=== PATIENT | male | born 1970 | race Caucasian/White ===

== ENCOUNTER → 2018-01-10 14:42 | Outpatient (CLI) | payer OTHER, BC, SELFPAY ==
--- NOTE | 2018-01-10 14:46 | XR_ITS ---
XR ankle LT min 3V HISTORY: Pain following injury ITS.REASON: Left ankle injury ORDERING PHYSICIAN: CHRIS Adams PATIENT AGE: 47 years COMPARISON: FINDINGS: No fracture or dislocation. No lytic or blastic change. There is normal mineralization.. The joint spaces are well-preserved. No significant degenerative/arthritic changes. No erosive changes evident. IMPRESSION: Negative ankle, no acute finding
== END ==
PROVIDERS: PCP Physician Assistant; Visit Provider Physician Assistant
DX: S99.912A Unspecified injury of left ankle, initial encounter (principal)
CPT/HCPCS: 73610

== ENCOUNTER → 2021-04-18 18:49 | Outpatient (CLI) | payer BC, SELFPAY ==
[2021-04-18 19:01] LABS: Microscopic, Urine URINE MICROSCOPIC (MICROSCOPIC)
[2021-04-18 19:41] LABS: Basophils # 0.1 K/mm3 (0-0.2); Basophils % 0.9 % (0.1-2.0); Eosinophils # 0.4 K/mm3 (0.0-0.4); Eosinophils % 4.7 % (0.1-12.0); Hematocrit 50.3 % (42.0-52.0); Hemoglobin 17.4 g/dL (14.1-18.0); Lymphocytes % 24.2 % (10-50); Mean Corpuscular HGB Conc 34.5 g/dL (31.8-35.4); Mean Corpuscular Hemoglobin 32.7 pg (27.0-31.2); Mean Corpuscular Volume 94.6 fl (80-94); Mean Platelet Volume 10.8 fl (7.4-10.4); Monocytes # 0.6 K/mm3 (0.1-1.0); Monocytes % 7.7 % (1.7-9.3); Neutrophils # 5.1 K/mm3 (1.8-7.8); Neutrophils % 62.6 % (37.0-80.0); Platelet Count 216 K/mm3 (142-424); Red Blood Count 5.31 M/mm3 (4.60-6.20); Red Cell Distribution Width 13.4 % (11.5-17.5); White Blood Count 8.1 K/mm3 (4.8-10.8)
[2021-04-18 19:52] LABS: Alanine Aminotransferase 22 U/L (12-78); Albumin Level 4.5 g/dl (3.5-5.0); Albumin/Globulin Ratio 1.7 (1.1-1.8); Alkaline Phosphatase 59 U/L (38-126); Anion Gap 14.9 mEq/L (5-15); Aspartate Amino Transferase 25 U/L (17-59); Blood Urea Nitrogen 11 mg/dl (9-20); Calcium 9.3 mg/dl (8.4-10.2); Carbon Dioxide 24 mmol/L (22.0-30.0); Chloride 107 mmol/L (98-107); Chol/HDL Ratio 4.3 (1-3.5); Cholesterol 261 mg/dl (140-200); Estimated Glomerular Filt Rate 79 ml/min (>60); GFR (African American) 96 ML/MIN (>60); Globulin 2.6 g/dL (1.3-3.2); Glucose 98 mg/dl (74-100); HDL Cholesterol 61 mg/dl (40-60); Potassium 4.9 mmoL/L (3.5-5.1); Sodium 141 mmol/L (136-145); Total Protein,Serum 7.1 g/dl (6.3-8.2); Triglycerides 109 mg/dl (30-150); VLDL Cholesterol 22 mg/dL (0-40)
[2021-04-18 20:05] LABS: Direct LDL Cholesterol 177.15 mg/dL (100-129)
[2021-04-18 20:12] LABS: 25-OH Vitamin D, Total 27.5 ng/mL (30-100); T4 (Thyroxine) 7.4 ug/dl (5.53-11.0)
[2021-04-18 20:23] LABS: Erythrocyte Sedimentation Rate 5 mm/hr (0-15)
[2021-04-18 20:25] LABS: Prostate Specific Ag Screen 0.6 ng/ml (0.0-4.0); Thyroid Stimulating Hormone 0.97 uIU/mL (0.465-4.68)
[2021-04-19 00:34] LABS: Appearance,Urine CLEAR (Clear); Bilirubin,Urine Negative (Negative); Blood, Urine Negative (Negative); Color,Urine YELLOW (Yellow); Glucose,Urine (UA) Negative (Negative); Ketones,Urine Negative (Negative); Leukocyte Esterase,Urine Negative (Negative); Nitrate,Urine Negative (Negative); Protein,Urine Negative (Negative); Urobilinogen,Urine 0.2 EU/dl (0.2)
[2021-04-19 00:51] LABS: Bacteria,Urine Trace /lpf; WBC,Urine Occasional #/hpf (0-3)
[2021-04-23 14:38] LABS: Testosterone, Total, LC/MS 422.6 ng/dL (264.0-916.0); Testosterone,Free 8.6 pg/mL (7.2-24.0)
[2021-04-27 18:23] LABS: 1,25 Dihydroxy Vitamin D 62 pg/mL (.); 1,25-Dihydroxy, Vitamin D-2 <10 pg/mL (.); 1,25-Dihydroxy, Vitamin D-3 61 pg/mL (.)
== END ==
PROVIDERS: Visit Provider Emergency Medicine
DX: R53.83 Other fatigue (principal); E55.9 Vitamin D deficiency, unspecified; N40.0 Benign prostatic hyperplasia without lower urinary tract symptoms; G47.33 Obstructive sleep apnea (adult) (pediatric); Z12.5 Encounter for screening for malignant neoplasm of prostate
CPT/HCPCS: 80053; 80061; 81001; 82306; 82652; 84402; 84403; 84436; 84443; 85025; 85651; G0103

== ENCOUNTER → 2022-12-20 20:08 | Outpatient (CLI) | payer BC, SELFPAY ==
[2022-12-20 17:57] LABS: Microscopic, Urine URINE MICROSCOPIC (MICROSCOPIC)
[2022-12-20 18:08] LABS: Appearance,Urine CLEAR (Clear); Bilirubin,Urine Negative (Negative); Blood, Urine Negative (Negative); Glucose,Urine (UA) Negative (Negative); Ketones,Urine Negative (Negative); Leukocyte Esterase,Urine Negative (Negative); Nitrate,Urine Negative (Negative); Protein,Urine Negative (Negative); Specific Gravity, Urine <= 1.005 (1.005-1.030); Urobilinogen,Urine 0.2 EU/dl (0.2)
[2022-12-20 18:09] LABS: Basophils # 0.1 K/mm3 (0-0.2); Basophils % 1.2 % (0.1-2.0); Eosinophils # 0.5 K/mm3 (0.0-0.4); Eosinophils % 6.9 % (0.1-12.0); Hematocrit 50.1 % (42.0-52.0); Hemoglobin 16.6 g/dL (14.1-18.0); Lymphocytes % 29.6 % (10-50); Mean Corpuscular HGB Conc 33.2 g/dL (31.8-35.4); Mean Corpuscular Hemoglobin 31.9 pg (27.0-31.2); Mean Platelet Volume 10.2 fl (7.4-10.4); Monocytes # 0.6 K/mm3 (0.1-1.0); Monocytes % 9.3 % (1.7-9.3); Neutrophils # 3.6 K/mm3 (1.8-7.8); Platelet Count 231 K/mm3 (142-424); Red Blood Count 5.21 M/mm3 (4.60-6.20); Red Cell Distribution Width 13.1 % (11.5-17.5); White Blood Count 6.8 K/mm3 (4.8-10.8)
[2022-12-20 18:13] LABS: Alanine Aminotransferase 37 U/L (12-78); Albumin Level 4.5 g/dl (3.5-5.0); Albumin/Globulin Ratio 1.7 (1.1-1.8); Alkaline Phosphatase 52 U/L (38-126); Aspartate Amino Transferase 37 U/L (17-59); Bilirubin,Total 0.6 mg/dl (0.2-1.3); Blood Urea Nitrogen 14 mg/dl (9-20); Carbon Dioxide 27 mmol/L (22.0-30.0); Chloride 104 mmol/L (98-107); Chol/HDL Ratio 4.4 (1-3.5); Cholesterol 280 mg/dl (140-200); Estimated Glomerular Filt Rate 78 ml/min (>60); GFR (African American) 95 ML/MIN (>60); Globulin 2.6 g/dL (1.3-3.2); Glucose 89 mg/dl (74-100); HDL Cholesterol 63 mg/dl (40-60); Sodium 136 mmol/L (136-145); Total Protein,Serum 7.1 g/dl (6.3-8.2); Triglycerides 130 mg/dl (30-150); VLDL Cholesterol 26 mg/dL (0-40)
[2022-12-20 18:24] LABS: Direct LDL Cholesterol 175.14 mg/dL (100-129)
[2022-12-20 18:25] LABS: Color,Urine Straw (Yellow)
[2022-12-20 18:30] LABS: Bacteria,Urine Trace /lpf
[2022-12-20 18:31] LABS: 25-OH Vitamin D, Total 27.5 ng/mL (30-100); Free T4 (Free Thyroxine) 1.07 ng/dl (0.78-2.19)
[2022-12-20 18:44] LABS: Prostate Specific Ag Screen 0.8 ng/ml (0.0-4.0); Thyroid Stimulating Hormone 1.95 uIU/mL (0.465-4.68)
[2022-12-22 13:17] LABS: Testosterone,Total 313 ng/dL (264-916)
== END ==
PROVIDERS: PCP Emergency Medicine; Visit Provider Emergency Medicine
DX: S30.1XXA Contusion of abdominal wall, initial encounter (principal); R35.0 Frequency of micturition; E55.9 Vitamin D deficiency, unspecified; E66.3 Overweight; Z68.31 Body mass index [BMI] 31.0-31.9, adult
CPT/HCPCS: 80053; 80061; 81001; 82306; 84403; 84439; 84443; 85025; G0103

== ENCOUNTER → 2022-12-29 15:02 | Outpatient (CLI) | payer BC, SELFPAY ==
--- NOTE | 2022-12-29 15:03 | MR_ITS ---
FINAL REPORT CLINICAL HISTORY: back pain right leg pain x 6 weeks numbness , tingling and burning FINDINGS: MRI LUMBAR SPINE W/O CONTRAST Multiplanar MR imaging of the lumbar spine was performed without contrast. On the sagittal T2-weighted images, disc degeneration is seen at multiple levels. There is 8 mm of anterolisthesis of L5 on S1. The vertebral alignment is otherwise normal. There is no evidence of fracture. The conus has an unremarkable appearance. L1-2: Annular disc bulge is present. L2-3: An annular disc bulge is present. L3-4: An annular disc bulge is present with mild bilateral neural foraminal narrowing. L4-5: An annular disc bulge is present with a small central disc protrusion and mild bilateral neural foraminal narrowing. L5-S1: Annular disc bulge is present with moderate bilateral neural foraminal narrowing. There is grade 1-2 anterolisthesis of L5 on S1. There is bilateral L5 pars defects. IMPRESSION: Multilevel disc degeneration and spondylosis with areas of neural foraminal narrowing as detailed at each level above. 8 mm of anterolisthesis of L5 on S1. Reviewed, Interpreted and Dictated by Carlitos Mendoza III, MD Transcribed by Suze Pardo Authenticated and [facility]
== END ==
PROVIDERS: PCP Emergency Medicine; Visit Provider Nurse Practitioner Family
DX: M54.9 Dorsalgia, unspecified (principal); M54.50 Low back pain, unspecified
CPT/HCPCS: 72148; 76376

== ENCOUNTER 2023-03-02 13:00 | Outpatient (RCR) | payer BC, SELFPAY | END 2023-03-02 13:05 | disposition home or self-care (01) | LOC: PT 13:00 | PROVIDERS: PCP Emergency Medicine; Visit Provider Neurological Surgery | DX: M51.36 Other intervertebral disc degeneration, lumbar region (principal); M25.551 Pain in right hip; M25.552 Pain in left hip | CPT/HCPCS: 97010; 97012; 97014; 97110; 97163; G0283 ==

== ENCOUNTER 2023-08-10 17:00 | Outpatient (RCR) | payer BC, SELFPAY | END 2023-08-10 18:00 | disposition home or self-care (01) | LOC: PT 17:00 | PROVIDERS: PCP Emergency Medicine; Visit Provider Neurological Surgery | DX: M47.816 Spondylosis without myelopathy or radiculopathy, lumbar region (principal) | CPT/HCPCS: 97010; 97014; 97163; G0283 ==

== ENCOUNTER → 2023-08-15 22:00 | Outpatient (CLI) | payer BC, SELFPAY ==
[2023-08-15 19:05] LABS: Basophils # 0.1 K/mm3 (0-0.2); Eosinophils # 0.2 K/mm3 (0.0-0.4); Eosinophils % 3.4 % (0.1-12.0); Hematocrit 40.5 % (42.0-52.0); Hemoglobin 13.5 g/dL (14.1-18.0); Lymphocytes # 1.6 K/mm3 (0.7-4.5); Lymphocytes % 32.5 % (10-50); Mean Corpuscular HGB Conc 33.4 g/dL (31.8-35.4); Mean Corpuscular Volume 95.8 fl (80-94); Mean Platelet Volume 9.6 fl (7.4-10.4); Monocytes # 0.3 K/mm3 (0.1-1.0); Neutrophils # 2.7 K/mm3 (1.8-7.8); Neutrophils % 56.1 % (37.0-80.0); Platelet Count 278 K/mm3 (142-424); Red Blood Count 4.23 M/mm3 (4.60-6.20); Red Cell Distribution Width 13.8 % (11.5-17.5); White Blood Count 4.8 K/mm3 (4.8-10.8)
[2023-08-15 19:16] LABS: Alanine Aminotransferase 34 U/L (12-78); Albumin Level 4.5 g/dl (3.5-5.0); Albumin/Globulin Ratio 1.7 (1.1-1.8); Alkaline Phosphatase 63 U/L (38-126); Anion Gap 13.5 mEq/L (5-15); Aspartate Amino Transferase 36 U/L (17-59); Bilirubin,Total 0.6 mg/dl (0.2-1.3); Blood Urea Nitrogen 14 mg/dl (9-20); Calcium 9.3 mg/dl (8.4-10.2); Carbon Dioxide 22 mmol/L (22.0-30.0); Chloride 107 mmol/L (98-107); Chol/HDL Ratio 4.1 (1-3.5); Cholesterol 239 mg/dl (140-200); Estimated Glomerular Filt Rate 78 ml/min (>60); GFR (African American) 95 ML/MIN (>60); Globulin 2.6 g/dL (1.3-3.2); Glucose 101 mg/dl (74-100); HDL Cholesterol 58 mg/dl (40-60); Potassium 4.5 mmoL/L (3.5-5.1); Sodium 138 mmol/L (136-145); Total Protein,Serum 7.1 g/dl (6.3-8.2); Triglycerides 118 mg/dl (30-150); VLDL Cholesterol 24 mg/dL (0-40)
[2023-08-15 19:27] LABS: Direct LDL Cholesterol 148.13 mg/dL (100-129)
[2023-08-15 19:33] LABS: 25-OH Vitamin D, Total 72.9 ng/mL (30-100)
[2023-08-15 19:47] LABS: Thyroid Stimulating Hormone 0.99 uIU/mL (0.465-4.68)
== END ==
PROVIDERS: PCP Physician Assistant; Visit Provider Physician Assistant
DX: E78.5 Hyperlipidemia, unspecified (principal); I10 Essential (primary) hypertension; E55.9 Vitamin D deficiency, unspecified; Z79.899 Other long term (current) drug therapy
CPT/HCPCS: 80053; 80061; 82306; 84443; 85025

== ENCOUNTER → 2023-08-20 15:43 | Outpatient (CLI) | payer BC, SELFPAY ==
--- NOTE | 2023-08-20 16:03 | XR_ITS ---
FINAL REPORT CLINICAL HISTORY: left ankle pain COMPARISON: 01/10/2018 FINDINGS: LEFT ANKLE Three views demonstrate no acute fracture or dislocation. There is a ossific protrusion arising from the lateral aspect of what appears to be the calcaneus, seen on the frontal view only. There is a tiny plantar spur. The visualized joint spaces are normally aligned. The soft tissues are unremarkable. IMPRESSION: Ossific protuberance arising from the lateral aspect of what appears to be the calcaneus. Consider CT or MRI for further evaluation. Reviewed, Interpreted and Dictated by Jamal Dailey MD Transcribed by Lynn Torres Authenticated and . [facility]
--- NOTE | 2023-08-20 16:03 | XR_ITS ---
FINAL REPORT CLINICAL HISTORY: left foot pain COMPARISON: 01/10/2018 FINDINGS: LEFT FOOT Three views of the left foot demonstrate no acute fracture or dislocation. The visualized joint spaces are normally aligned. The soft tissues are unremarkable. IMPRESSION: No acute bony abnormality. Reviewed, Interpreted and Dictated by Jmaal Dailey MD Transcribed by Lynn Torres Authenticated and [facility]
== END ==
PROVIDERS: PCP Physician Assistant; Visit Provider Physician Assistant
DX: S99.912A Unspecified injury of left ankle, initial encounter (principal); W19.XXXA Unspecified fall, initial encounter
CPT/HCPCS: 73610; 73630

== ENCOUNTER 2023-08-22 15:48 | Outpatient (RCR) | payer BC, SELFPAY | END 2023-08-22 16:30 | disposition home or self-care (01) | LOC: PT 15:48 | PROVIDERS: Visit Provider Physician Assistant | DX: S93.402D Sprain of unspecified ligament of left ankle, subsequent encounter (principal) | CPT/HCPCS: 97760 ==

== ENCOUNTER → 2023-08-24 08:01 | Outpatient (CLI) | payer BC, SELFPAY ==
--- NOTE | 2023-08-24 08:01 | CA_ITS ---
FINAL REPORT CLINICAL HISTORY: HTN COMPARISON: None FINDINGS: Aorta velocity: 77.4 cm/sec Right kidney: 8.5 cm. No evidence of hydronephrosis or mass. Right intrarenal RI: 0.65 Right renal artery velocity: 158 cm/sec. Right RAR (Renal artery-Aortic Ratio): 2 Left Kidney: 10.6 cm. No evidence of hydronephrosis or mass. Left intrarenal RI: 0.61 Left renal artery velocity: 144 cm/sec. Left RAR (Renal Artery-Aortic Ratio): 1.9 IMPRESSION: No evidence of significant renal artery stenosis CT angiogram or postcontrast MR angiogram would be more sensitive for evaluation of possible renal artery stenosis. Reviewed, Interpreted and Dictated by Jamal Dailey MD Transcribed by Graciela Drew Authenticated and [facility]
== END ==
PROVIDERS: PCP Physician Assistant; Visit Provider Physician Assistant
DX: I10 Essential (primary) hypertension (principal)
CPT/HCPCS: 93976

== ENCOUNTER 2023-09-27 20:11 | Outpatient (CLI) | payer BC, SELFPAY ==
[2023-09-27 20:36] LABS: Amphetamine/Metha Screen,Urine Negative ng/ml (<1000)
[2023-09-27 20:37] LABS: Barbiturates Screen,Urine Negative ng/ml (<200)
[2023-09-27 20:38] LABS: Benzodiazepines Screen,Urine Negative ng/ml (<200); Cannabinoid Screen,Urine Negative ng/ml (<50)
[2023-09-27 20:39] LABS: Cocaine Screen,Urine Negative ng/ml (<300)
[2023-09-27 20:40] LABS: Methadone Screen,Urine Negative ng/ml (<300); Opiate Screen,Urine Negative ng/ml (<300)
[2023-09-27 20:41] LABS: Phencyclidine Screen,Urine Negative ng/ml (<25)
[2023-10-03 23:08] LABS: Gabapentin,Urine Negative (.)
== END 2023-09-27 23:59 ==
LOC: LAB.DROPOF 20:12
PROVIDERS: PCP Physician Assistant; Visit Provider Physician Assistant
DX: M54.16 Radiculopathy, lumbar region (principal); Z79.899 Other long term (current) drug therapy
CPT/HCPCS: 80307

== ENCOUNTER 2023-10-19 14:48 | Outpatient (CLI) | payer BC, SELFPAY ==
--- NOTE | 2023-10-19 14:48 | CT_ITS ---
FINAL REPORT TECHNIQUE: Thin section axial CT images with coronal and sagittal reformats were performed through the neck. This study was performed with techniques to keep radiation doses as low as reasonably achievable (ALARA). Individualized dose reduction techniques using automated exposure control or adjustment of mA and/or kV according to the patient''s size were employed. CLINICAL HISTORY: dysphagia FINDINGS: No adenopathy or mass lesion is present . Salivary glands are normal. Larynx is unremarkable. Thyroid gland is unremarkable. There is mild mucosal thickening of the maxillary sinuses. IMPRESSION: Maxillary sinusitis. Reviewed, Interpreted and Dictated by Carlitos Mendoza III, MD Transcribed by Jodi Heart Authenticated and [facility]
== END 2023-10-19 23:59 ==
LOC: RAD 14:48
PROVIDERS: PCP Physician Assistant; Visit Provider Physician Assistant
DX: R13.10 Dysphagia, unspecified (principal)
CPT/HCPCS: 70490

== ENCOUNTER 2023-11-02 11:37 | Day surgery (SDC) | payer BC, SELFPAY ==
[2023-11-02 11:53] VITALS: BP 142/83; PULSE 64; RESP 18; TEMP 36.4; O2SAT 99; BMI 28.7
[2023-11-02] MEDS: LACTATED RINGERS 1000ML 1,000 ML 25 ML IV (12:03)
--- NOTE | 2023-11-02 12:07 | EXP.ANES.CKL ---
[facility] Disclaimer: The information contained in this section may have been updated after the patient was seen, as this information can be updated by other users. Medical History (Updated 11/02/23 @ 11:52 by Shirley Go RN) Hyperlipidemia Hypertension Surgical History (Updated 11/02/23 @ 11:52 by Shirley Go RN) History of back surgery History of esophagogastroduodenoscopy (EGD) Family History (Updated 11/02/23 @ 11:52 by Shirley Go RN) Other Family history of DVT Family history of cancer Family history of diabetes mellitus type II Family history of hyperlipidemia Family history of hypertension Family history of myocardial infarction Family history of stroke Social History (Updated 11/02/23 @ 11:52 by Shirley Go RN) Smoking Status: Current some day smoker tobacco type: cigarettes packs per day: 1 alcohol intake: current substance use type: denies use current occupational status: employed Travel in the last 8 weeks: None current occupation: [employer] Anesthesia Checklist Patient Identification Patient Identification: Arm Band and Verbal (Name & ) Structural Data Admitted From: Home Planned Operative Procedure/s: Colonoscopy Consent for Planned Operative Procedure(s) Verified: Yes Verified Documents: Surgical Consent and History and Physical NPO Status Verified Time NPO: 10:00 Chart Verification Results Verified: CBC and BMP Additional verifications Patient : No Anesthesia Reactions: No Cardiovascular Assessment Heart Sounds: S1 & S2 Pulse Rhythm: Irregular Peripheral Edema: No Airway Assessment Mallampati Score:: Class I C-Spine Mobility Assessed: Yes (FROM) TMJ Mobility Assessed: Yes Dentition: Good Dentition (Nothing loose per pt.) Neurological Assessment Level of Consciousness: Awake, Alert, Appropriate and Follows Commands Hx Seizures: No Numbness or tingling in extremities: No Anesthesia Plan Anesthesia Risk discussed: Yes Anesthesia Plan: Verified ASA Class: III Anesthesia Type: MAC
--- NOTE | 2023-11-02 12:16 | HMH.SCOPE ---
Procedure: Date: 11/02/23 Patient Date of :: 1970 Procedure Performed:: Total colonoscopy to terminal ileum with polypectomy using snare and biopsy forceps Indications:: Patient is a 53-year-old male referred by Vanita Stanford for colonoscopy. He had a positive Cologuard on 09/25/2023. He has several family members who have had colon cancer. Performing Provider:: Carlitos Armenta MD Referring Provider:: Vanita Stanford Sedation:: MAC sedation Procedure:: Patient history was obtained and appropriate physical examination was performed. Patient's medications and allergies were reviewed. Informed consent was obtained after explaining the benefits, alternatives, and risks of the procedure including, but not limited to, bleeding, perforation, missed lesions, and adverse reaction to anesthesia medications. Patient was transported to endoscopy procedure room. Patient was connected to monitoring devices. Throughout the procedure the patient's blood pressure, pulse, and oxygen saturations were monitored continuously. Patient identification and planned procedure were verified by the staff. Patient was positioned in lateral decubitus position. Digital anorectal exam was performed. Variable stiffness Olympus colonoscope was inserted and advanced under direct visualization to the cecum. Adequacy of the colonic preparation was noted. The colonoscope was advanced a short distance into the terminal ileum. The colonoscope was then slowly withdrawn while carefully examining the color, texture, anatomy, and integrity of the mucosoa circumferentially. Within the rectum retroflexion was performed. Colonoscope was then withdrawn. . Colonic preparation was good. There was a lobulated versus 2 adjacent sessile polyps near the hepatic flexure removed in a piecemeal fashion using cold cutting snare. Within this region there was a separate polyp removed with cold cutting snare. This was sent as 3 polyps which appeared adenomatous at the hepatic flexure. In the rectosigmoid region there were numerous hyperplastic appearing polyps. Multiple polyps removed with cold biopsy forceps. Retroflexion revealed no evidence of any pathologic internal hemorrhoids. . Findings:: Lobulated versus 2 adjacent adherent polyps in the hepatic flexure with second adjacent polyp Multiple hyperplastic appearing polyps Recommendations:: Repeat colonoscopy pending pathology. Given the family history and adenomatous polyps likely 3 years. Complications:: None immediately apparent Estimated blood obtained (mL): 2 Colonoscopy Component Colonoscopy Component Was a colonoscopy performed during today's procedure?: Yes Recommended follow up colonoscopy of at least 10 years?: No If no, follow up colonoscopy recommended in ___ years?: 3 Reason for not recommending >/= 10 yr follow-up interval?: Polyps, family history
[2023-11-02 12:24] VITALS: O2SAT 100
[2023-11-02 13:03] VITALS: BP 104/55; PULSE 68; RESP 16; TEMP 36.2; O2SAT 95
[2023-11-02 13:13] VITALS: BP 126/69; PULSE 68; RESP 17; O2SAT 98
[2023-11-02 13:32] VITALS: BP 124/85; PULSE 62; RESP 18; O2SAT 98
== END 2023-11-02 13:34 | disposition home or self-care (01) ==
PROVIDERS: PCP Physician Assistant; Visit Provider Surgery
PROC: 0DJD8ZZ Inspection of Lower Intestinal Tract, Via Natural or Artificial Opening Endoscopic (ICD-10-PCS; CPT 45385; principal; 2023-11-02 12:30)
DX: D12.3 Benign neoplasm of transverse colon; K63.5 Polyp of colon; Z80.0 Family history of malignant neoplasm of digestive organs; R19.5 Other fecal abnormalities
CPT/HCPCS: 45385; 45380; J2704

== ENCOUNTER 2023-12-12 10:59 | Outpatient (CLI) | payer BC, SELFPAY ==
--- NOTE | 2023-12-12 10:59 | FL_ITS ---
FINAL REPORT CLINICAL HISTORY: dysphagia ft: 1.58 10.89 mgy DAP 177.13 FINDINGS: MODIFIED BARIUM SWALLOW History: Dysphagia FINDINGS: Fluoroscopy was provided for the speech pathologist to evaluate the swallowing mechanism. The patient was given several different consistencies of barium while the swallow was visualized fluoroscopically. The report of the speech pathologist should be consulted prior to making dietary decisions. FLUOROSCOPY TIME: 1 minute 58 seconds Radiation exposure in Reference air Kerma: 10.89 mGy IMPRESSION: Modified barium swallow under fluoroscopic guidance. Please see the report of the speech pathologist for Dietary recommendations. Films reviewed , interpreted and dictated by Dr. Mendoza Transcribed by Luis Armando Cali PA-C. Reviewed, Interpreted and Dictated by Carlitos Mendoza III, MD Transcribed by CHRIS Cunningham Authenticated and [facility]
--- NOTE | 2023-12-12 15:50 | HMH.SLMBS2 ---
Speech & Language Evaluation Speech/Language Mod Barium Swallow Start: 12/12/23 15:38 Freq: once Status: Complete Protocol: Document 12/12/23 15:38 HELADIO (Rec: 12/12/23 15:50 JONATANLOLASHARMAINE [id number]) General Information General Current Food Consistancy Regular,Thin Liquids Dentition Good Dentition Oxygen Status Room Air Patient Orientation Person,Place,Time,Situation Ability to Follow Directions Excellent Communication Ability No Impairment MBS Recommendations Diet Dietary Recommendations Regular,Thin Liquids Treatment/Strategies Treatment Recommendation Compens. Strategy Educat. Strategy/Precaution Recommend Sitting Upright (90 deg), Double Swallow,No Straw,Small Bites and Sips,Alternate Liquids/Solids Referrals/Other Recommended Referrals GI Consult Other Recommendations GI consult recommended 2' globus sensation reports and retrograde flow of bolus observed during MBSS. Pt reports he cannot keep food down. Mod Barium Swallow Impressions Summary and Impressions Oral Phase Impression No Impairment (WFL) Oral Phase Summary No impairment of the oral preparatory and oral transit phases of the swallow. Mastication and manipulation of bolus appear WFL. Pharyngeal Phase Impression Minimal Impairment Pharyngeal Phase Summary Minimal to mild impairment of the pharyngeal phase of the swallow. Clinical observations found retrograde flow resulting in trace residuals at PPW and pyriform sinus. Pt was also found to have trace amounts of residuals when presented with straws in the vallecular space. Mr. Lee reportedly has difficulty with grainy foods/meats/breads and that they feel stuck or that they want to come back up. He also states large pills take multiple swallows to complete. With barium tablet, retrograde flow was observed on initial attempt to swallow and pill became lodged in valleculae. With prompting to take multiple sips via open straw and a double 'hard' swallow, the pill was cleared. [employer] provided education on compensatory strategies and diet recommendations, as well as need for consult with GI and he expressed understanding. Speech/Language MBS Assessment/Goals/Plan Assessment Date of Evaluation: 12/12/23 Evaluation Type Initial Certification Assessment/Problems dysphagia/choking episode per MD order. Does Patient Qualify for Service No Qualify/Failure Comment Based on clinical observations made throughout MBSS instrumental assessment, Mr. Lee's oropharyngeal phases of the swallow appear to be WFL. No further skilled speech therapy services are warranted at this time. It is recommended that he receive GI consult to assess c/o globus sensation and retrograde flow of bolus further. Recommendations PHYSICIAN CERTIFICATION: The specified therapy services are required, authorized, and reviewed every 30 days. Diet Recommendations Normal SL Swallow Guidelines Alt bite w/sip thru meal, Standard Aspiration Prec.,Eat at slow rate,Reflux precautions Crush Meds Ok for small pills Dysphagia Swallow Precautions/Strategies Sitting Upright (90 deg),No Straw,Small Bites and Sips, Alternate Liquids/Solids Plan Pt/Guardian verbally ack understanding Yes of dx/prognosis/goals G -code Required No Education Instructions provided Discussed results of MBSS, diet recommendations, consults made, and compensatory strategies and precautions with Mr. Lee who expressed understanding. Pt/Caregiver able to recall information Able to recall/restate Reinforcement needed No Mod Barium Swallow Setup Exam Setup Radiologist Carlitos Mendoza Level of Consciousness Awake,Alert,Appropriate, Follows Commands Mod Barium Swallow-Lat View Textures Lateral View Food Presentation Thin Liquid via Cup,Thin Liquid via Straw,Pureed Food- Thin,Mech. Soft Food- Regular, Barium Tablet,Regular Food, Pudding Oral Phase Labial Closure No Impairment (WFL) Bolus Formation Pooling L/R No Impairment (WFL) Bolus Formation under Tongue No Impairment (WFL) Bolus Formation Scattered Loss No Impairment (WFL) Mastication Rotary Chew No Impairment (WFL) Mastication Munching No Impairment (WFL) Mastication Lateralization No Impairment (WFL) Lingual Movement No Impairment (WFL) Residue Clearing No Impairment (WFL) Pharyngeal Phase A/P Lingual Propulsion Spills No Impairment (WFL) Swallow Response Delay No Impairment (WFL) Base of Tongue No Impairment (WFL) Epiglottic Coverage No Impairment (WFL) Laryngeal Elevation No Impairment (WFL) Vallecular Retention Clearing Minimal Impairment Pharyn. Wall Residue Clearing Mild Impairment Piriform Sinus Retention Mild Impairment Aspiration? No Silent aspiration? No Mod Barium Swallow-AP View Performed Mod Barium Swallow A/P View Test Not Applicable/Performed PHYSICIAN CERTIFICATION: I certify the specified therapy services for Gómez Lee are required, authorized, and reviewed every 30 days.
== END 2023-12-12 23:59 ==
LOC: RAD 10:59
PROVIDERS: PCP Physician Assistant; Visit Provider Physician Assistant
DX: R13.10 Dysphagia, unspecified (principal)
CPT/HCPCS: 70371; 92611